=== PATIENT | female | born 1975 | race Caucasian/White ===

== ENCOUNTER 2017-09-22 07:18 | Day surgery (SDC) | payer BC, OTHER ==
[2017-09-22] MEDS ORDERED: FENTAnyl 50 MCG/ML VIAL (09:37)
[2017-09-22] MEDS ORDERED: MIDAZOLAM 1 MG/ML 2 ML INJ ×2 (09:38)
== END 2017-09-22 11:46 | disposition home or self-care (01) ==
LOC: GIL 07:18
DX: K29.30 Chronic superficial gastritis without bleeding (principal); K21.0 Gastro-esophageal reflux disease with esophagitis
CPT/HCPCS: 43239; 84703; 88305; 88312; 88313